=== PATIENT | female | born 1960 | race Caucasian/White ===

== ENCOUNTER 2021-07-25 10:51 | Inpatient (IN) | payer MEDICAID ==
[~2021-07-25] VITALS: Ht 157.5 cm; Wt 63.7 kg
[2021-07-25] MEDS ORDERED: ASPIRIN 325 MG TABLET PO ONE (11:45)
[2021-07-25] MEDS ORDERED: ONDANSETRON HCL 4 MG/2 ML VIAL IVP ONE (11:45)
[2021-07-25 12:04] LABS: COVID AG,FIA SOURCE NASAL SWAB
[2021-07-25 12:06] LABS: BASOPHILS % (AUTO) 1.3 % (0.0-2.0); EOSINOPHILS % (AUTO) 2.7 % (1.0-6.0); HEMATOCRIT 41.9 % (36-46); HEMOGLOBIN 14.3 g/dL (12.0-16.0); LYMPHOCYTES # (AUTO) 1.9 K/uL (1.0-4.8); LYMPHOCYTES % (AUTO) 16.8 % (22.0-44.0); MEAN CORPUSCULAR HEMOGLOBIN 32.5 pg (26.0-34.0); MEAN CORPUSCULAR VOLUME 96 fL (80-100); MONOCYTES # (AUTO) 0.6 K/uL (0.1-1.0); MONOCYTES % (AUTO) 5.2 % (2.0-9.0); NEUTROPHILS # (AUTO) 8.2 K/uL (1.8-7.7); PLATELET COUNT (AUTO) 246 K/uL (150-450); RED BLOOD CELL COUNT(AUTO) 4.38 MIL/uL (4.00-5.20); RED CELL DISTRIBUTION WIDTH 14.8 % (11.5-14.5)
[2021-07-25 12:15] LABS: CREATININE 1.02 mg/dL (0.60-1.30); POTASSIUM 3.4 mmol/L (3.5-5.1)
[2021-07-25 12:19] LABS: PROTHROMBIN TIME 10.4 SEC (9.4-11.6)
[2021-07-25 12:23] LABS: ALBUMIN 3.5 g/dL (3.4-5.0); BILIRUBIN,TOTAL 0.5 mg/dL (0.1-1.0); TOTAL PROTEIN, SERUM 8.2 g/dL (6.4-8.2)
[2021-07-25] MEDS ORDERED: ACETAMINOPHEN 325 MG TABLET PO PRN (14:30)
[2021-07-25] MEDS ORDERED: INSULIN LISPRO 100 UNITS/ML SQ PRN (14:30)
[2021-07-25] MEDS ORDERED: IPRATROPIUM BROMIDE 0.5 MG/2.5 ML NEB SOLUTION NEB PRN (14:30)
[2021-07-25] MEDS ORDERED: DOCUSATE SODIUM 100 MG CAPSULE PO PRN (14:30)
[2021-07-25] MEDS ORDERED: BISACODYL 10 MG RECTAL RECTAL SUPPOSITORY PR PRN (14:30)
[2021-07-25] MEDS ORDERED: ALBUTEROL SULFATE 2.5 MG/0.5 ML NEB SOLUTION NEB PRN (14:30)
[2021-07-25] MEDS ORDERED: DEXTROSE 50%-WATER 25 GM/50 ML SYRINGE IVP PRN (14:30)
[2021-07-25] MEDS ORDERED: MORPHINE SULFATE 2 MG/ML SYRINGE IVP PRN (14:30)
[2021-07-25] MEDS ORDERED: ONDANSETRON HCL 4 MG/2 ML VIAL IVP PRN (14:30)
[2021-07-25] MEDS ORDERED: 0.9% SODIUM CHLORIDE 10 ML SYRINGE IVP PRN (14:30)
[2021-07-25] MEDS ORDERED: ARIP2TAB27 PO (14:39)
[2021-07-25] MEDS ORDERED: CALC260T16 PO (14:39)
[2021-07-25] MEDS ORDERED: DULO60CA98 PO (14:39)
[2021-07-25] MEDS ORDERED: OMEP20 PO (14:39)
[2021-07-25] MEDS ORDERED: PARO10TA89 PO (14:39)
[2021-07-25] MEDS ORDERED: MIRT-89 PO (14:39)
[2021-07-25] MEDS ORDERED: PRAZ1 PO (14:39)
[2021-07-25] MEDS ORDERED: ISOS10TA16 PO (14:39)
[2021-07-25] MEDS ORDERED: ASPI81TA87 PO (14:39)
[2021-07-25] MEDS ORDERED: METF-1211 PO (14:39)
[2021-07-25] MEDS ORDERED: METO25XL PO (14:39)
[2021-07-25] MEDS ORDERED: ROSU20TA73 PO (14:40)
[2021-07-25] MEDS ORDERED: LORA10TA7 PO (14:40)
[2021-07-25] MEDS: HEPARIN SODIUM,PORCINE 5,000 UNITS/ML VIAL SQ SCH (15:08)
[2021-07-25] MEDS ORDERED: ATORVASTATIN CALCIUM 40 MG TABLET PO SCH (21:00)
[2021-07-25] MEDS: METOPROLOL TARTRATE 25 MG TABLET PO SCH (21:18)
[2021-07-26] VITALS (15 sets, daily range): BP systolic 100–163; BP diastolic 46–80
[2021-07-26] MEDS: HEPARIN SODIUM,PORCINE 5,000 UNITS/ML VIAL SQ SCH ×3 (01:00→16:00)
[2021-07-26 06:26] LABS: GLUCOMETER DEV NAME(LOC) 5S.1; GLUCOSE,POINT OF CARE 118 MG/DL (70-110)
[2021-07-26 07:01] LABS: BASOPHILS % (AUTO) 1.1 % (0.0-2.0); EOSINOPHILS % (AUTO) 2.4 % (1.0-6.0); HEMATOCRIT 38.7 % (36-46); HEMOGLOBIN 13.3 g/dL (12.0-16.0); LYMPHOCYTES # (AUTO) 2.9 K/uL (1.0-4.8); LYMPHOCYTES % (AUTO) 29.4 % (22.0-44.0); MEAN CORPUSCULAR HGB CONC 34.5 G/dL (31.0-37.0); MEAN CORPUSCULAR VOLUME 96 fL (80-100); MONOCYTES # (AUTO) 0.6 K/uL (0.1-1.0); MONOCYTES % (AUTO) 6.1 % (2.0-9.0); NEUTROPHILS # (AUTO) 6.1 K/uL (1.8-7.7); PLATELET COUNT (AUTO) 229 K/uL (150-450); RED BLOOD CELL COUNT(AUTO) 4.04 MIL/uL (4.00-5.20)
[2021-07-26 07:16] LABS: ALBUMIN 3.1 g/dL (3.4-5.0); BILIRUBIN,TOTAL 0.4 mg/dL (0.1-1.0); CALCIUM, TOTAL 8.6 mg/dL (8.8-10.5); CHOL/HDL RATIO 4.2 (3.9-5.7); CREATININE 0.98 mg/dL (0.60-1.30); POTASSIUM 4.2 mmol/L (3.5-5.1); TOTAL PROTEIN, SERUM 7.4 g/dL (6.4-8.2)
[2021-07-26 07:20] LABS: HEMOGLOBIN A1C 5.8 % (3.8-5.6)
[2021-07-26] MEDS ORDERED: IOHEXOL 300 MG/ML 150 ML VIAL ONE (08:22)
[2021-07-26] MEDS ORDERED: LIDOCAINE/PF 1% 30 ML VIAL ONE (08:22)
[2021-07-26] MEDS ORDERED: SODIUM BICARBONATE 50 MEQ/50 ML VIAL ONE (08:22)
[2021-07-26] MEDS ORDERED: IOHEXOL 300 MG/ML 50 ML VIAL ONE (08:22)
[2021-07-26] MEDS ORDERED: IOHEXOL 300 MG/ML 100 ML VIAL ONE (08:23)
[2021-07-26] MEDS ORDERED: HEPARIN SODIUM 1000 UNITS/NS 1,000 ML ONE (08:23)
[2021-07-26] MEDS ORDERED: PANTOPRAZOLE SODIUM 40 MG DR TABLET PO SCH (09:00)
[2021-07-26] MEDS ORDERED: ISOSORBIDE MONONITRATE 30 MG ER TABLET PO SCH (09:00)
[2021-07-26] MEDS: METOPROLOL TARTRATE 25 MG TABLET PO SCH (09:00)
[2021-07-26] MEDS ORDERED: ASPIRIN 81 MG CHEWABLE TABLET PO SCH (09:00)
[2021-07-26] MEDS ORDERED: MIDAZOLAM HCL 2 MG/2 ML VIAL ONE (09:23)
[2021-07-26] MEDS ORDERED: FentaNYL CITRATE PF 100 MCG/2 ML VIAL ONE (09:23)
[2021-07-26] MEDS ORDERED: IOHEXOL 300 MG/ML 150 ML VIAL IARTER ONE (10:00)
[2021-07-26] MEDS ORDERED: LIDOCAINE 1% 30 ML/SOD BICARB 8.4% 4 ML SQ ONE (10:00)
[2021-07-26] MEDS ORDERED: SODIUM CHLORIDE 0.9% 500 ML IV ONE (10:00)
[2021-07-26] MEDS ORDERED: HEPARIN SODIUM 1000 UNITS/NS 1,000 ML IARTER ONE (10:00)
[2021-07-26] MEDS ORDERED: LISINOPRIL 10 MG TABLET PO SCH (10:15)
[2021-07-26] MEDS ORDERED: METOPROLOL TARTRATE 25 MG TABLET PO SCH (10:15)
[2021-07-26 10:40] LABS: APPEARANCE,URINE CLEAR (CLEAR); BILIRUBIN,URINE NEGATIVE (NEGATIVE); GLUCOSE, URINE (UA) NEGATIVE (NEGATIVE); KETONES,URINE NEGATIVE (NEGATIVE); LEUKOCYTE ESTERASE ,URINE NEGATIVE (NEGATIVE); NITRATE,URINE NEGATIVE (NEGATIVE); OCCULT BLOOD,URINE NEGATIVE (NEGATIVE); PROTEIN,URINE NEGATIVE (NEGATIVE); UROBILINOGEN,URINE 0.2 mg/dL (<=1.0)
[2021-07-26 12:42] LABS: GLUCOMETER DEV NAME(LOC) 5S.1; GLUCOSE,POINT OF CARE 173 MG/DL (70-110)
[2021-07-28 12:03] LABS: GLUCOMETER DEV NAME(LOC) 5N.3; GLUCOSE,POINT OF CARE 125 MG/DL (70-110)
== END 2021-07-26 17:20 | disposition home or self-care (01) | DRG 191 ==
LOC: EMS 11:00 → 5S 22:53
PROVIDERS: ADMIT Internal Medicine; ATTEND Internal Medicine
PROC: 4A023N7 Measurement of Cardiac Sampling and Pressure, Left Heart, Percutaneous Approach (ICD-10-PCS; principal; 2021-07-26)
PROC: B2151ZZ Fluoroscopy of Left Heart using Low Osmolar Contrast (ICD-10-PCS; 2021-07-26)
PROC: B2111ZZ Fluoroscopy of Multiple Coronary Arteries using Low Osmolar Contrast (ICD-10-PCS; 2021-07-26)
DX: I20.0 Unstable angina (principal); R65.10 Systemic inflammatory response syndrome (SIRS) of non-infectious origin without acute organ dysfunction; I11.9 Hypertensive heart disease without heart failure; E11.9 Type 2 diabetes mellitus without complications; F32.9 Major depressive disorder, single episode, unspecified; Z20.822 Contact with and (suspected) exposure to COVID-19; E78.5 Hyperlipidemia, unspecified; Z87.891 Personal history of nicotine dependence
CPT/HCPCS: 71045; 80053; 80061; 81003; 82550; 82962; 83036; 83880; 84145; 84484; 85025; 85610; 85730; 93005; 99291; J1644; J2250; J2405; J3010; J3490; Q9967; 36415-L1; 36415-TC

== ENCOUNTER 2021-11-26 10:43 | Emergency (ER) | payer MEDICAID ==
[~2021-11-26] VITALS: Ht 157.5 cm; Wt 67.0 kg
[~2021-11-26 10:43] MED LIST: ARIP2TAB27 PO; ASPI81TA87 PO; CALC260T16 PO; DULO60CA98 PO; ISOS10TA16 PO; LORA10TA7 PO; METF-1211 PO; METO25XL PO; MIRT-89 PO; OMEP20 PO; PARO10TA89 PO; PRAZ1 PO; ROSU20TA73 PO
[2021-11-26 11:32] LABS: BASOPHILS % (AUTO) 0.8 % (0.0-2.0); EOSINOPHILS % (AUTO) 2.8 % (1.0-6.0); HEMATOCRIT 42.3 % (36-46); HEMOGLOBIN 14.8 g/dL (12.0-16.0); LYMPHOCYTES % (AUTO) 19.3 % (22.0-44.0); MEAN CORPUSCULAR HEMOGLOBIN 33.1 pg (26.0-34.0); MEAN CORPUSCULAR HGB CONC 34.9 G/dL (31.0-37.0); MEAN CORPUSCULAR VOLUME 95 fL (80-100); MONOCYTES # (AUTO) 0.7 K/uL (0.1-1.0); MONOCYTES % (AUTO) 6.6 % (2.0-9.0); NEUTROPHILS # (AUTO) 7.2 K/uL (1.8-7.7); NEUTROPHILS % (AUTO) 70.5 % (40.0-70.0); PLATELET COUNT (AUTO) 165 K/uL (150-450); RED BLOOD CELL COUNT(AUTO) 4.47 MIL/uL (4.00-5.20); RED CELL DISTRIBUTION WIDTH 15.8 % (11.5-14.5)
[2021-11-26 11:44] LABS: ANION GAP 5 mmol/L (8-16); CARBON DIOXIDE 34 mmol/L (22-29); CHLORIDE 102 mmol/L (98-107); GLOMERULAR FILTR. RATE CALC > 60 mL/min (>60); GLUCOSE,RANDOM 121 mg/dL (70-110); POTASSIUM 4.2 mmol/L (3.5-5.1); SODIUM SERUM 141 mmol/L (136-145); UREA NITROGEN, BLOOD 9 mg/dL (7-18)
[2021-11-26 11:50] LABS: ALANINE AMINOTRANSFERASE 23 U/L (12-78); ALBUMIN 3.5 g/dL (3.4-5.0); ALKALINE PHOSPHATASE 87 U/L (46-116); ASPARTATE AMINOTRANSFERASE 25 U/L (15-37); BILIRUBIN,TOTAL 0.9 mg/dL (0.1-1.0); CREATINE KINASE, TOTAL ONLY 22 U/L (26-192)
[2021-11-26 11:51] LABS: B-TYPE NATRIURETIC PEPTIDE 14 pg/mL (0-100)
[2021-11-26] MEDS ORDERED: CLOP75TA60 PO (13:55)
[2021-11-26 14:00] VITALS: BP 140/82
== END 2021-11-26 14:30 | disposition home or self-care (01) ==
LOC: EMS 10:46
DX: R55 Syncope and collapse (principal); R20.0 Anesthesia of skin; R20.2 Paresthesia of skin; E11.9 Type 2 diabetes mellitus without complications; F32.9 Major depressive disorder, single episode, unspecified; I10 Essential (primary) hypertension; Z79.82 Long term (current) use of aspirin; Z79.84 Long term (current) use of oral hypoglycemic drugs
CPT/HCPCS: 70450; 71045; 80053; 82550; 83880; 84484; 85025; 93005; 99285